=== PATIENT | female | born 1960 | race Caucasian/White ===

== ENCOUNTER 2017-07-23 20:01 | Observation (INO) | payer OTHER ==
[~2017-07-23] VITALS: Ht 160 cm; Wt 75.0 kg
[2017-07-23 20:16] VITALS: BP 153/80; PULSE 81; RESP 19; TEMP 98.3; O2SAT 98
[2017-07-23 20:26] VITALS: RESP 19; O2SAT 98
--- NOTE | 2017-07-23 20:29 | PD ---
HPI Chief Complaint: GI Complaint Time Seen by Provider: 20:13 Travel History International Travel<30 days: No Contact w/Intl Traveler<30days: No Traveled to known affect area: No History of Present Illness HPI The patient is a 57 year old female who presents to the [facility] emergency department with a history of vomiting that began today after receiving fentanyl during an eye surgery at 3 PM. The patient's eye surgery done at the [facility] by Dr. Eng, was done for a history of retinal detachment that occurred related to an accident in June 2016. She reports that this is the fourth surgery she's had on the left eye. The patient reports that she felt pain during surgery and also fentanyl was administered IV. She was also given topical lidocaine. Shortly after having the fentanyl she began to have nausea and vomiting at least 10 times. She reports that it did not improve with the administration of Zofran 8 mg IV and a Phenergan suppository. The patient's blood pressure was noted to be very high during this time, therefore hydralazine 10 mg was administered IV. According to the patient's family member at the bedside the patient's blood pressure was as high as 200/115. She denies having any prior history of hypertension. The patient' s blood pressure on arrival is 153/80. The patient is drowsy on examination. She has difficulty staying awake to provide her history. She denies having any headache. She has a patch in place over the left eye. She reports that she was told not to remove this until tomorrow at her 11:30 AM appointment with her labor and delivery nurse. Otherwise, review of systems she denies having any recent fevers, cough, congestion, neck pain, chest pain, shortness of breath, abdominal pain, diarrhea, urinary symptoms, one-sided weakness, slurred speech, facial droop, or difficulty with word finding ability. [facility] Past Medical History Narrative Medical The patient's past medical history is significant for retinal detachment. PCP: Dr. Bola Barajas ?: Not Past Surgical History Narrative Surgical The patient's past surgical history is significant for 3 c-sections, hiatal hernia, hysterectomy, a cholecystectomy, 4 by surgeries on the left thigh related to a retinal detachment. Social History Alcohol Use: Yes (1-2 x per week) Tobacco Use: No Substance Use: No Allergies-Medications (Allergen,Severity, Reaction): Coded Allergies: morphine (Verified Allergy, Unknown, 07/23/17) sensation of coming out of her skin Reported Meds & Prescriptions Reported Meds & Active Scripts Active Narrative Medication None Review of Systems Except as stated in HPI: all other systems reviewed are Neg General / Constitutional: No: Fever Eyes: No: Visual changes HENT: No: Headaches, Neck Stiffness, Neck Pain Cardiovascular: No: Chest Pain or Discomfort Respiratory: No: Shortness of Breath Gastrointestinal: Positive: Nausea, Vomiting, No: Diarrhea, Abdominal Pain Genitourinary: No: Dysuria Musculoskeletal: No: Pain Skin: No Rash Neurologic: No: Weakness Psychiatric: No: Depression Endocrine: No: Polydipsia Hematologic/Lymphatic: No: Easy Bruising Physical Exam Narrative General: The patient is a well-developed well-nourished female in no acute distress, drowsy on examination on arrival. Head and Neck exam: Head is normocephalic atraumatic. Eyes: The patient's right pupil is symmetric and reactive to light. The patient has a bandage in place over the left eye. This was maintained in place until I speak to the labor and delivery nurse regarding this patient's case. Nose: Midline septum with pink mucous membranes Mouth: Dentition unremarkable. Moist mucus membranes. Posterior oropharynx is not erythematous. No tonsillar hypertrophy. Uvula midline. Airway patent. Neck: No palpable lymphadenopathy. No nuchal rigidity. No thyromegaly. Cardiovascular: Regular rate and rhythm without murmurs, gallops, or rubs. Lungs: Clear to auscultation bilaterally. No wheezes, rhonchi, or rales. Abdomen: Soft, without tenderness to palpation in all 4 quadrants of the abdomen. No guarding, rebound, or rigidity. Normal bowel sounds are audible. No tenderness on palpation of McBurney's point. Extremities: No clubbing, cyanosis, or edema. 2+ pulses in all 4 extremities. No calf tenderness on palpation. Back: No spinous process tenderness to palpation. No costovertebral angle tenderness to palpation. Neurologic Exam: Cranial nerves 2-12 were intact on exam. Strength is 5/5 in all 4 extremities. No sensory deficits noted. The patient is drowsy on arrival that she did receive fentanyl, as well as a Phenergan suppository which could be contributing to this. She is easily awakened and oriented to person, place, time, and situation. Skin Exam: No rash noted. Intact skin that is warm and dry. Data Data Last Documented VS Vital Signs Date Time Temp Pulse Resp B/P (MAP) Pulse Ox O2 Delivery O2 Flow Rate FiO2 07/23/17 20:26 19 98 Room Air 07/23/17 20:16 98.3 81 153/80 (104) Orders Orders Electrocardiogram (07/23/17 20:20) Complete Blood Count With Diff (07/23/17 20:20) Comprehensive Metabolic Panel (07/23/17 20:20) Troponin I (07/23/17 20:20) Prothrombin Time / Inr (Pt) (07/23/17 20:20) Act Partial Throm Time (Ptt) (07/23/17 20:20) Lipase (07/23/17 20:20) Urinalysis - C+S If Indicated (07/23/17 20:20) Magnesium (Mg) (07/23/17 20:20) Chest, Single Ap (07/23/17 20:20) Iv Access Insert/Monitor (07/23/17 20:20) Ecg Monitoring (07/23/17 20:20) Oximetry (07/23/17 20:20) Ct Brain W/O Iv Contrast(Rout) (07/23/17 20:20) Sodium Chlorid 0.9% 500 Ml Inj (Ns 500 M (07/23/17 21:30) Potassium Chlor 20 Meq Premix (Kcl 20 Me (07/23/17 21:30) Sodium Chlorid 0.9% 500 Ml Inj (Ns 500 M (07/23/17 22:30) Ondansetron Inj (Zofran Inj) (07/23/17 23:15) Prochlorperazine Inj (Compazine Inj) (07/23/17 23:15) Admit Order (Ed Use Only) (07/23/17 23:10) Labs Laboratory Tests Test 07/23/17 20:45 White Blood Count 10.6 TH/MM3 Red Blood Count 4.79 MIL/MM3 Hemoglobin 14.6 GM/DL Hematocrit 42.0 % Mean Corpuscular Volume 87.5 FL Mean Corpuscular Hemoglobin 30.4 PG Mean Corpuscular Hemoglobin Concent 34.7 % Red Cell Distribution Width 14.5 % Platelet Count 167 TH/MM3 Mean Platelet Volume 10.6 FL Neutrophils (%) (Auto) 83.7 % Lymphocytes (%) (Auto) 13.9 % Monocytes (%) (Auto) 1.9 % Eosinophils (%) (Auto) 0.3 % Basophils (%) (Auto) 0.2 % Neutrophils # (Auto) 8.8 TH/MM3 Lymphocytes # (Auto) 1.5 TH/MM3 Monocytes # (Auto) 0.2 TH/MM3 Eosinophils # (Auto) 0.0 TH/MM3 Basophils # (Auto) 0.0 TH/MM3 CBC Comment AUTO DIFF Differential Comment AUTO DIFF CONFIRMED Platelet Estimate LOW Platelet Morphology Comment NORMAL Prothrombin Time 9.8 SEC Prothromb Time International Ratio 0.9 RATIO Activated Partial Thromboplast Time 18.5 SEC Blood Urea Nitrogen 13 MG/DL Creatinine 0.88 MG/DL Random Glucose 150 MG/DL Total Protein 7.5 GM/DL Albumin 3.9 GM/DL Calcium Level 8.8 MG/DL Magnesium Level 1.8 MG/DL Alkaline Phosphatase 125 U/L Aspartate Amino Transf (AST/SGOT) 94 U/L Alanine Aminotransferase (ALT/SGPT) 111 U/L Total Bilirubin 1.2 MG/DL Sodium Level 137 MEQ/L Potassium Level 3.3 MEQ/L Chloride Level 104 MEQ/L Carbon Dioxide Level 20.1 MEQ/L Anion Gap 13 MEQ/L Estimat Glomerular Filtration Rate 66 ML/MIN Troponin I LESS THAN 0.02 NG/ML Lipase 71 U/L MDM Medical Decision Making Medical Screen Exam Complete: Yes Emergency Medical Condition: Yes Medical Record Reviewed: Yes Interpretation(s) Last Impressions Head CT 07/23/172019 Signed Impressions: Service Date/Time: Sunday, July 23, 2017 20:55 - CONCLUSION: No acute intracranial findings. Presumed postoperative appearance of the left globe Bola Davis MD Chest X-Ray 07/23/172019 Signed Impressions: Service Date/Time: Sunday, July 23, 2017 20:24 - CONCLUSION: Mild bilateral basilar parenchymal opacities. Bola Davis MD Differential Diagnosis Medication side effect causing nausea vomiting postop, versus viral syndrome, versus intracranial hemorrhage, versus acute angle closure glaucoma Narrative Course During the course of the patients emergency department visit, the patients history, examination, and differential diagnosis were reviewed with the patient. The patient was placed on a radiographer cardiac catheterization with oximetry and frequent blood pressure monitoring. The patient had IV access obtained and blood work sent for analysis. A CT scan of the brain was ordered. A call was placed out to the labor and delivery nurse but didn't surgery earlier today. The call was placed at 8:30 PM. The patient was initially provided normal saline a 500 mL bolus 1. The patients laboratory studies were reviewed and remarkable for a white count of 10.6, hemoglobin 14.6, platelets 167 with 83.7 neutrophils, CMP is remarkable for potassium of 3.3 which was supplemented IV, CO2 20.1, therefore an additional normal saline 500 mL bolus was given times one. Glucose is 150, total bilirubin 1.2, AST 94, ALT 111, alkaline phosphatase 125. Troponin I is less than 0.02, lipase 71, Radiology studies were reviewed and remarkable for a chest x-ray that shows mild bilateral basilar parenchymal opacities. This could represent atelectasis as the patient denies having any cough or congestion, fever or chills. The patient's white count is also within normal limits. Unfortunately, while the patient was being observed and started on a by mouth challenge and she again vomited. Regarding the patient's elevated liver function tests, the patient is asymptomatic. The patient was instructed to follow-up with her primary care physician for repeat LFTs in 1 week and additional testing if indicated. This could be medication related. The patient will be admitted to the hospital for observation, IV fluid resuscitation for intractable vomiting. The patients results were discussed with the patient, including the plan of care. I explained that further testing and/ or monitoring is indicated based on the patients history, examination, and/ or laboratory findings. Therefore, I recommended admission for additional evaluation. The patient expressed understanding and was agreeable with this plan. The patient was admitted to the hospital in stable condition and sent to a bed under the care of the [facility] hospitalist service. Physician Communication Physician Communication At 8:45 PM I spoke to [place] regarding this patient's case. She reports that she does not want the eye patch removed to check the patient's eye pressure. The patient's eye pressure was reportedly checked postprocedure and it is not thought that the patient's nausea and vomiting is related to her eye itself, however a side effect from the fentanyl. She recommended that the patient follow-up early in the office in the morning at 8:30 AM and stated the scheduled appointment at 11:30. Unfortunately the patient continued to have nausea and vomiting. The patient's case was discussed with Dr. Phelan who did agree to admit the patient for further evaluation and treatment at this time. Diagnosis Primary Impression: Nausea and vomiting Qualified Codes: R11.2 - Nausea with vomiting, unspecified Additional Impression: Medication side effect Qualified Codes: T88.7XXA - Unspecified adverse effect of drug or medicament, initial encounter Referrals: Marketing Operations Manager 1 day Follow-up in the morning with the labor and delivery nurse at 8:30 AM Scripts Ondansetron Odt (Zofran Odt) 4 Mg Tab 4 MG SL Q6HR Y for Nausea/Vomiting, #7 TAB 0 Refills Prov: Brian Jackson DO 07/24/17 Tanisha Bermudez MD Jul 23, 2017 20:29
--- NOTE | 2017-07-23 20:45 | RADRPT ---
EXAM DATE/TIME: 07/23/2017 20:24 [facility] COMPARISON: No previous studies available for comparison. INDICATIONS : Vomiting MEDICAL HISTORY : None. SURGICAL HISTORY : None. ENCOUNTER: Initial ACUITY: 1 day PAIN SCORE: 0/10 LOCATION: chest FINDINGS: There is mild streaky bibasilar parenchymal opacity which may be atelectasis. No evidence of effusion . Cardiomediastinal contours are satisfactory for technique and projection. CONCLUSION: Mild bilateral basilar parenchymal opacities. Bola Davis MD on July 23, 2017 at 20:43 Board Certified Radiologist. This report was verified electronically.
[2017-07-23 21:19] LABS: AUTOMATED NEUTROPHIL # 8.8 TH/MM3 (1.8-7.7); BASOPHIL % 0.2 % (0.0-2.0); EOSINOPHIL % 0.3 % (0.0-4.0); LYMPH % 13.9 % (9.0-44.0); LYMPHOCYTE # 1.5 TH/MM3 (1.0-4.8); MEAN CELL VOLUME 87.5 FL (80.0-100.0); MEAN CORPUSCULAR HEMOGLOBIN 30.4 PG (27.0-34.0); MEAN CORPUSCULAR HGB CONC 34.7 % (32.0-36.0); MONO % 1.9 % (0.0-8.0); NEUT % 83.7 % (16.0-70.0); PLATELET COUNT 167 TH/MM3 (150-450); RED BLOOD COUNT 4.79 MIL/MM3 (4.00-5.30); RED CELL DISTRIBUTION WIDTH 14.5 % (11.6-17.2); WHITE BLOOD COUNT 10.6 TH/MM3 (4.0-11.0)
[2017-07-23 21:21] LABS: HEMO FLAGS AUTO DIFF
[2017-07-23 21:22] LABS: ANION GAP 13 MEQ/L (5-15); AST (GOT) 94 U/L (15-37); BICARBONATE 20.1 MEQ/L (21.0-32.0); BLOOD UREA NITROGEN 13 MG/DL (7-18); CHLORIDE 104 MEQ/L (98-107); GLOMERULAR FILTRATION RATE 66 ML/MIN (>89); MAGNESIUM 1.8 MG/DL (1.5-2.5); POTASSIUM 3.3 MEQ/L (3.5-5.1); SODIUM (NA) 137 MEQ/L (136-145)
[2017-07-23 21:28] LABS: ALKALINE PHOSPHATASE 125 U/L (45-117); ALT (GPT) 111 U/L (10-53); TOTAL BILIRUBIN ADULT 1.2 MG/DL (0.2-1.0)
[2017-07-23] MEDS ORDERED: SODIUM CHLORID 0.9% 500 ML INJ 500 ML IV ONE ×2 (21:30→22:30)
[2017-07-23] MEDS ORDERED: POTASSIUM CHLOR 20 MEQ PREMIX 100 ML IV ONE (21:30)
[2017-07-23] MEDS ORDERED: PROM2SUP RECTAL (21:32)
--- NOTE | 2017-07-23 21:36 | RADRPT ---
EXAM DATE/TIME: 07/23/2017 20:55 [facility] COMPARISON: No previous studies available for comparison. INDICATIONS : Nausea and vomiting status post retina reattachment surgery today. RADIATION DOSE: 33.82 CTDIvol (mGy) MEDICAL HISTORY : None SURGICAL HISTORY : Retina reattachment surgery ENCOUNTER: Initial ACUITY: 1 day PAIN SCALE: 5/10 LOCATION: Left eye TECHNIQUE: Multiple contiguous axial images were obtained of the head. Using automated exposure control and adj ustment of the mA and/or kV according to patient size, radiation dose was kept as low as reasonably a chievable to obtain optimal diagnostic quality images. DICOM format image data is available electro nically for review and comparison. FINDINGS: CEREBRUM: The ventricles are normal for age. No evidence of midline shift, mass lesion, hemorrhage or acute in farction. No extra-axial fluid collections are seen. POSTERIOR FOSSA: The cerebellum and brainstem are intact. The 4th ventricle is midline. The cerebellopontine angle i s unremarkable. EXTRACRANIAL: There is gas and hyperdense fluid or blood within the left globe, presumably a postoperative sequela. Some sort of scleral band implement is present. SKULL: The calvaria is intact. No evidence of skull fracture. CONCLUSION: No acute intracranial findings. Presumed postoperative appearance of the left globe Bola Davis MD on July 23, 2017 at 21:31 Board Certified Radiologist. This report was verified electronically.
[2017-07-23 21:41] LABS: APTT (PATIENT) 18.5 SEC (24.3-30.1); INTERNATIONAL NORMALIZED RATIO 0.9 RATIO; PROTHROMBIN TIME - PATIENT 9.8 SEC (9.8-11.6)
[2017-07-23 21:55] LABS: PLATELET ESTIMATE SMEAR LOW (NORMAL); PLATELET MORPHOLOGY NORMAL (NORMAL); SCAN/DIFF AUTO DIFF CONFIRMED
[2017-07-23] MEDS ORDERED: ONDANSETRON HCL 4 MG/2 ML VIAL IV PUSH ONE (23:15)
[2017-07-23] MEDS ORDERED: PROCHLORPERAZINE INJ 10 MG/2 ML VIAL IV PUSH ONE (23:15)
[2017-07-23] MEDS ORDERED: PROMETHAZINE INJ 25 MG/ML VIAL IM PRN (23:15)
[2017-07-23] MEDS ORDERED: ONDANSETRON HCL 4 MG/2 ML VIAL IV PUSH PRN (23:15)
[2017-07-23] MEDS ORDERED: NS + KCL 20 MEQ INJ 1,000 ML IV SCH (23:15)
[2017-07-24 00:21] VITALS: BP 141/53; PULSE 92; RESP 18; O2SAT 95
--- NOTE | 2017-07-24 06:42 | HHI.HP ---
HPI Service [facility] Hospitalists Primary Care Physician Bola Barajas MD Admission Diagnosis Intractable N/V post op Chief Complaint: Intractable nausea vomiting after retinal procedure Travel History International Travel<30 Days: No Contact w/Intl Traveler <30 Da: No Traveled to Known Affected Are: No History of Present Illness The patient is a 57 year old female with history of retinal detachment who presents to the [facility] emergency department with a history of vomiting that began today after receiving fentanyl during an eye surgery at 3 PM. The patient's eye surgery done at the [facility] by Dr. Rocha, was done for a history of retinal detachment that occurred related to a fall while ice skating in June 2016. She reports that this is the fourth surgery she's had on the left eye. The patient reports that she felt pain during surgery and fentanyl was administered IV. She was also given topical lidocaine. She has never needed fentanyl before and has an allergy to morphine. Shortly after having the fentanyl she began to have nausea and vomiting at least 10 times. She reports that it did not improve with the administration of Zofran 8 mg IV and a Phenergan suppository. She was also given hydralazine and scopolamine postop per her report. The patient's blood pressure was noted to be very high during that time, therefore hydralazine 10 mg was administered IV. According to the patient's boyfriend at the bedside the patient's blood pressure was as high as 200/117. She denies having any prior history of hypertension. The patient's blood pressure on arrival is 153/80. She denies having any headache. She has a patch in place over the left eye. She reports that she was told not to remove this until tomorrow at her 11:30 AM appointment with her retinal specialist. Otherwise, review of systems she denies having any recent fevers, cough, congestion, neck pain, chest pain, shortness of breath, abdominal pain, diarrhea, urinary symptoms, one-sided weakness, slurred speech, facial droop, or difficulty with word finding ability. Reportedly her ocular pressure was checked and normal for discharge from the surgery Center. Last episode of vomiting was around midnight and she has done well since being transferred over to the current room. She has not tried to take any oral intake whatsoever, but reports she feels much better and has no nausea currently. She did report that her last episode of vomiting had some blood- tinged emesis. It is noted she has a hiatal hernia had been retching multiple times. Review of Systems Constitutional: DENIES: Diaphoretic episodes, Fatigue, Fever, Weight gain, Weight loss, Chills, Dizziness, Change in appetite, Night Sweats Endocrine: DENIES: Abnorml menstrual pattern, Heat/cold intolerance, Polydipsia , Polyuria, Polyphagia Eyes: COMPLAINS OF: Blurred vision, Eye pain, DENIES: Diplopia, Eye inflammation, Photosensitivity, Double Vision Ears, nose, mouth, throat: DENIES: Tinnitus, Hearing loss, Vertigo, Nasal discharge, Oral lesions, Throat pain, Hoarseness, Ear Pain, Running Nose, Epistaxis, Sinus Pain, Toothache, Odynophagia Respiratory: DENIES: Apneas, Cough, Snoring, Wheezing, Hemoptysis, Sputum production, Shortness of breath Cardiovascular: DENIES: Chest pain, Palpitations, Syncope, Dyspnea on Exertion , PND, Lower Extremity Edema, Orthopnea, Claudication Gastrointestinal: COMPLAINS OF: Nausea, Vomiting Musculoskeletal: DENIES: Joint pain, Muscle aches, Stiffness, Joint Swelling, Back pain, Neck pain Integumentary: DENIES: Abnormal pigmentation, Pruritus, Rash, Nail changes, Breast masses, Breast skin changes, Nipple discharge Hematologic/lymphatic: DENIES: Bruising, Lymphadenopathy Immunologic/allergic: DENIES: Eczema, Urticaria Neurologic: DENIES: Abnormal gait, Headache, Localized weakness, Paresthesias, Seizures, Speech Problems, Tremor, Poor Balance Psychiatric: COMPLAINS OF: Anxiety Past Family Social History Past Medical History Obesity Hyperlipidemia Hiatal hernia Retinal detachment since June 2016 Past Surgical History Cholecystectomy Hysterectomy 4 retinal surgeries since June 2016 3 Reported Medications Generally takes no medications at home but uses eyedrops as instructed after her retinal procedures. 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 Physical Exam Vital Signs Vital Signs Date Time Temp Pulse Resp B/P (MAP) Pulse Ox O2 Delivery O2 Flow Rate FiO2 07/24/17 00:35 07/24/17 00:21 92 18 141/53 (82) 95 Room Air 07/23/17 20:26 19 98 Room Air 07/23/17 20:26 19 07/23/17 20:16 98.3 81 19 153/80 (104) 98 Physical Exam GENERAL: This is a well-nourished, well-developed patient, in no apparent distress. Sleeping but arouses to voice. Alert and oriented. SKIN: No rashes, ecchymoses or lesions. Cool and dry. HEAD: Atraumatic. Normocephalic. No temporal or scalp tenderness. EYES: Left thigh with patch and no direct exam performed of the left eye. Right eye with reactive pupil and extraocular motions intact. No scleral icterus. No injection or drainage. ENT: Nose without bleeding, purulent drainage or septal hematoma. Airway patent. NECK: Trachea midline. No JVD or lymphadenopathy. Supple, nontender, no meningeal signs. CARDIOVASCULAR: Regular rate and rhythm without murmurs, gallops, or rubs. RESPIRATORY: Clear to auscultation. Breath sounds equal bilaterally. No wheezes , rales, or rhonchi. GASTROINTESTINAL: Abdomen soft, non-tender, nondistended. No hepato-splenomegaly , or palpable masses. No guarding. MUSCULOSKELETAL: Extremities without clubbing, cyanosis, or edema. No joint tenderness, effusion, or edema noted. No calf tenderness. NEUROLOGICAL: Awake and alert. Cranial nerves II through XII intact. Motor and sensory grossly within normal limits. Five out of 5 muscle strength in all muscle groups. Normal speech. Laboratory Laboratory Tests Test 07/23/17 20:45 White Blood Count 10.6 Red Blood Count 4.79 Hemoglobin 14.6 Hematocrit 42.0 Mean Corpuscular Volume 87.5 Mean Corpuscular Hemoglobin 30.4 Mean Corpuscular Hemoglobin Concent 34.7 Red Cell Distribution Width 14.5 Platelet Count 167 Mean Platelet Volume 10.6 Neutrophils (%) (Auto) 83.7 Lymphocytes (%) (Auto) 13.9 Monocytes (%) (Auto) 1.9 Eosinophils (%) (Auto) 0.3 Basophils (%) (Auto) 0.2 Neutrophils # (Auto) 8.8 Lymphocytes # (Auto) 1.5 Monocytes # (Auto) 0.2 Eosinophils # (Auto) 0.0 Basophils # (Auto) 0.0 CBC Comment AUTO DIFF Differential Comment AUTO DIFF CONFIRMED Platelet Estimate LOW Platelet Morphology Comment NORMAL Prothrombin Time 9.8 Prothromb Time International Ratio 0.9 Activated Partial Thromboplast Time 18.5 Blood Urea Nitrogen 13 Creatinine 0.88 Random Glucose 150 Total Protein 7.5 Albumin 3.9 Calcium Level 8.8 Magnesium Level 1.8 Alkaline Phosphatase 125 Aspartate Amino Transf (AST/SGOT) 94 Alanine Aminotransferase (ALT/SGPT) 111 Total Bilirubin 1.2 Sodium Level 137 Potassium Level 3.3 Chloride Level 104 Carbon Dioxide Level 20.1 Anion Gap 13 Estimat Glomerular Filtration Rate 66 Troponin I LESS THAN 0.02 Lipase 71 Result Diagram: 07/23/17204407/23/172044 Imaging Last [address] 07/23/172019 Signed Impressions: Service Date/Time: Sunday, July 23, 2017 20:55 - CONCLUSION: No acute intracranial findings. Presumed postoperative appearance of the left globe Bola Davis MD Chest X-Ray 07/23/172019 Signed Impressions: Service Date/Time: Sunday, July 23, 2017 20:24 - CONCLUSION: Mild bilateral basilar parenchymal opacities. Bola Davis MD Caprini VTE Risk Assessment Caprini VTE Risk Assessment: No/Low Risk (score <= 1) Caprini Risk Assessment Model Point Value = 1 Point Value = 2 Point Value = 3 Point Value = 5 Age 41-60 Minor surgery BMI > 25 kg/m2 Swollen legs Varicose veins or History of unexplained or recurrent spontaneous Oral contraceptives or hormone replacement Sepsis (< 1 month) Serious lung disease, including pneumonia (< 1 month) Abnormal pulmonary function Acute myocardial infarction Congestive heart failure (< 1 month) History of inflammatory bowel disease Medical patient at bed rest Age 61-74 Arthroscopic surgery Major open surgery (> 45 min) Laparoscopic surgery (> 45 min) Malignancy Confined to bed (> 72 hours) Immobilizing plaster cast Central venous access Age >= 75 History of VTE Family history of VTE Factor V Leiden Prothrombin [id number] Lupus anticoagulant Anticardiolipin antibodies Elevated serum homocysteine Heparin-induced thrombocytopenia Other congenital or acquired thrombophilia Stroke (< 1 month) Elective arthroplasty Hip, pelvis, or leg fracture Acute spinal cord injury (< 1 month) Prophylaxis Regimen Total Risk Factor Score Risk Level Prophylaxis Regimen 0-1 Low Early ambulation 2 Moderate Order ONE of the following: *Sequential Compression Device (SCD) *Heparin 5000 units SQ BID 3-4 Higher Order ONE of the following medications: *Heparin 5000 units SQ TID *Enoxaparin/Lovenox 40 mg SQ daily (WT < 150 kg, CrCl > 30 mL/min) *Enoxaparin/Lovenox 30 mg SQ daily (WT < 150 kg, CrCl > 10-29 mL/min) *Enoxaparin/Lovenox 30 mg SQ BID (WT < 150 kg, CrCl > 30 mL/min) AND/OR *Sequential Compression Device (SCD) 5 or more Highest Order ONE of the following medications: *Heparin 5000 units SQ TID (Preferred with Epidurals) *Enoxaparin/Lovenox 40 mg SQ daily (WT < 150 kg, CrCl > 30 mL/min) *Enoxaparin/Lovenox 30 mg SQ daily (WT < 150 kg, CrCl > 10-29 mL/min) *Enoxaparin/Lovenox 30 mg SQ BID (WT < 150 kg, CrCl > 30 mL/min) AND *Sequential Compression Device (SCD) Assessment and Plan Problem List: (1) Retinal detachment ICD Codes: H33.20 - Serous retinal detachment, unspecified eye Status: Chronic Plan: Continue with retinal specialist. She has an appointment with him at 11: 30 this morning and hopefully we can have her out by then as long as she is tolerating oral intake (2) Nausea and vomiting ICD Codes: R11.2 - Nausea with vomiting, unspecified Status: Acute Plan: Last emesis episode was around midnight. We'll see how she tolerates oral intake. Continue anti-nausea medications as needed. Likely a reaction to the fentanyl since this is the only significant difference between this procedure and her previous retinal procedures. (3) Medication side effect ICD Codes: T88.7XXA - Unspecified adverse effect of drug or medicament, initial encounter Status: Acute Plan: As noted above. Fentanyl is the likely culprit. (4) Hyperlipidemia ICD Codes: E78.5 - Hyperlipidemia, unspecified Plan: Can follow as an outpatient. Code Status full Discussed Condition With Patient, her boyfriend, nurse and ER provider Problem Qualifiers (1) Retinal detachment: Qualified Codes: H33.22 - Serous retinal detachment, left eye (2) Nausea and vomiting: Qualified Codes: R11.2 - Nausea with vomiting, unspecified (3) Medication side effect: Qualified Codes: T88.7XXA - Unspecified adverse effect of drug or medicament, initial encounter (4) Hyperlipidemia: Qualified Codes: E78.00 - Pure hypercholesterolemia, unspecified Howard Phelan MD PhD Jul 24, 2017 06:42
[2017-07-24 08:28] VITALS: BP 126/64; PULSE 77; RESP 20; TEMP 98.2; O2SAT 95
[2017-07-24 08:34] LABS: ANION GAP 9 MEQ/L (5-15); AST (GOT) 62 U/L (15-37); BICARBONATE 21.8 MEQ/L (21.0-32.0); BLOOD UREA NITROGEN 12 MG/DL (7-18); CHLORIDE 112 MEQ/L (98-107); GLOMERULAR FILTRATION RATE 88 ML/MIN (>89); POTASSIUM 3.6 MEQ/L (3.5-5.1); SODIUM (NA) 143 MEQ/L (136-145)
[2017-07-24 08:36] LABS: ALKALINE PHOSPHATASE 107 U/L (45-117); ALT (GPT) 83 U/L (10-53); TOTAL BILIRUBIN ADULT 1.1 MG/DL (0.2-1.0)
[2017-07-24] MEDS ORDERED: ZOFR4TAB3 SL (09:09)
--- NOTE | 2017-07-24 09:16 | HHI.PR ---
Subjective Remarks No new complaints. Pt is tolerating PO intake. NO further vomiting. Objective Vitals Vital Signs Date Time Temp Pulse Resp B/P (MAP) Pulse Ox O2 Delivery O2 Flow Rate FiO2 07/24/17 08:28 98.2 77 20 126/64 (84) 95 07/24/17 00:35 07/24/17 00:21 92 18 141/53 (82) 95 Room Air 07/23/17 20:26 19 98 Room Air 07/23/17 20:26 19 07/23/17 20:16 98.3 81 19 153/80 (104) 98 Result Diagram: 07/23/17204407/24/1725 Imaging Last Impressions Head CT 07/23/172019 Signed Impressions: Service Date/Time: Sunday, July 23, 2017 20:55 - CONCLUSION: No acute intracranial findings. Presumed postoperative appearance of the left globe Bola Davis MD Chest X-Ray 07/23/172019 Signed Impressions: Service Date/Time: Sunday, July 23, 2017 20:24 - CONCLUSION: Mild bilateral basilar parenchymal opacities. Bola Davis MD Objective Remarks GENERAL: This is a well-nourished, well-developed patient, in no apparent distress. CARDIOVASCULAR: Regular rate and rhythm without murmurs, gallops, or rubs. RESPIRATORY: Clear to auscultation. Breath sounds equal bilaterally. No wheezes , rales, or rhonchi. GASTROINTESTINAL: Abdomen soft, non-tender, nondistended. Normal active bowel sounds MUSCULOSKELETAL: Extremities without clubbing, cyanosis, or edema. NEURO: Alert & Oriented x4 to person, place, time, situation. Moves all ext x4 A/P Problem List: (1) Retinal detachment ICD Codes: H33.20 - Serous retinal detachment, unspecified eye Status: Chronic Plan: - f/u with Retinal specialist - Pt has anointment at 11:30AM this AM (2) Nausea and vomiting ICD Codes: R11.2 - Nausea with vomiting, unspecified Status: Acute Plan: - last emesis at [place] - Pt has tolerated small amount of clears - if pt able to tolerate small amount of PO for breakfast, will d/c (3) Medication side effect ICD Codes: T88.7XXA - Unspecified adverse effect of drug or medicament, initial encounter Status: Acute Plan: As noted above. Fentanyl is the likely culprit. (4) Hyperlipidemia ICD Codes: E78.5 - Hyperlipidemia, unspecified Plan: Can follow as an outpatient. (5) LFT elevation ICD Codes: R79.89 - Other specified abnormal findings of blood chemistry Plan: - not greatly elevated and now trending down - possibly d/t pt's n/v - f/u with PCP Dr. Barajas, in 1 week. Problem Qualifiers (1) Retinal detachment: Qualified Codes: H33.22 - Serous retinal detachment, left eye (2) Nausea and vomiting: Qualified Codes: R11.2 - Nausea with vomiting, unspecified (3) Medication side effect: Qualified Codes: T88.7XXA - Unspecified adverse effect of drug or medicament, initial encounter (4) Hyperlipidemia: Qualified Codes: E78.00 - Pure hypercholesterolemia, unspecified Brian Jackson DO Jul 24, 2017 09:16
--- NOTE | 2017-07-24 14:59 | EKG ---
Date Performed: 07/23/2017 Time Performed: 21:12:47 PTAGE: 57 years EKG: Sinus rhythm INDETERMINATE AXIS INFERIOR MYOCARDIAL INFARCTION ABNORMAL ECG NO PREVIOUS TRACING DOCTOR: Galen Linton Interpretating Date/Time 07/24/2017 14:55:35
== END 2017-07-24 10:08 | disposition home or self-care (01) ==
LOC: NEPE 20:01 → NEDA 23:11 → NEPGCP 07-24 00:44
PROVIDERS: ADMIT Hospitalist; ATTEND Hospitalist
DX: R11.2 Nausea with vomiting, unspecified (principal); T40.4X5A Adverse effect of other synthetic narcotics, initial encounter; H33.22 Serous retinal detachment, left eye; R79.89 Other specified abnormal findings of blood chemistry; R94.31 Abnormal electrocardiogram [ECG] [EKG]; E78.5 Hyperlipidemia, unspecified; Z88.5 Allergy status to narcotic agent
CPT/HCPCS: 70450; 71010; 80053; 83690; 83735; 84484; 85025; 85610; 85730; 93005; 96361; 96374; 96375; 99285; G0378; J0780; J2405; J3480; J7040